=== PATIENT | female | born 1935 | race Caucasian/White ===

== ENCOUNTER → 2018-09-15 | Outpatient (CLI) | payer MEDICARE, BC ==
[~2018-09-15] MED LIST: REGADENOSON 0.4 MG/5 ML DISP.SYRIN. IV ONE
--- NOTE | 2018-09-16 13:34 | PCVCIMAG ---
APPROVED REPORT Imaging Protocol: Rest Tc-99m/Stress Tc-99m 1 day Study performed: 09/15/2018 08:46:59 Indication: CAD , Chest pain, Dyspnea Patient Location: Out-Patient Stress Nurse: Leigha Simeon RN, April Espinal RN [place] Tech:Aniya ANNE-MARIE UrbinaMT Ht: 5 ft 2 in Wt: 162 lbs BSA: 1.75 m2 HR: 65 bpm BP: 188/92 mmHg BMI: 29.6 Rhythm: Sinus Rhythm Medical History Medical History: HTN, Hyperlipidemia Medications: Albuterol, ASA, Lisinopril, Bystolic Allergies: Many, none relevant to this test Cardiac Risk Factors: Age CAD Previous Cardiac Procedures: PCI in 2013 - LAD, in 2017 - Circ Pretest Chest Pain Characteristics: No chest pain Exercise History: Physically active Meds Held (24 hrs): Pt chose to hold all am meds Resting Data Rest SPECT myocardial perfusion imaging was performed in supine position 45 minutes following the intravenous injection of 10.2 mCi of Tc-99m Sestamibi. Time of rest injection: 0800 Date: 09/15/2018 Administration Route: IV Administration Site: Right AC Pharmacologic Stress Pharmacologic stress test was performed by injecting Regadenoson 0.4 mg IV push over 10-15 seconds immediately followed by the intravenous injection of 34.8 mCi of Tc-99m Sestamibi. Time of stress injection: 0930 Date: 09/15/2018 Administration Route: IV Administration Site: Right AC Gated Stress SPECT was performed 45 minutes after stress injection. The images were gated to evaluate regional wall motion and calculate left ventricular ejection fraction. Stress Test Details Stress Test: Pharmacologic stress testing performed using 0.4 mg of regadenoson per 5 mL given IV over 10 seconds. Reason for pharmacologic stress test: back issues. HRMax Heart Rate (APMHR): 139 bpm Resting HR: 65 bpmTarget HR (85% APMHR): 118 bpm Max HR Achieved: 83 bpm % of APMHR: 59 Recovery HR: 80 bpm BP Resting BP: 188/92 mmHg Max BP: 182/76 mmHg Recovery BP: 194/88 mmHg ECG Resting ECG: Sinus Rhythm Stress ECG: Sinus Rhythm Recovery ECG: Sinus Rhythm Clinical Reason for Termination: Completed protocol Stress Symptoms: Abdominal discomfort, Dyspnea Exercise duration: 0 min 55 sec Symptoms resolved with caffeine. Stress ECG Conclusion ECG: Non-ischemic Study Quality Study: Good Study Data Post stress, the left ventricular ejection was 80%.. SSS: 6 SRS: 8 SDS: 1 TID = 1.06. Perfusion No evidence of stress induced ischemia or prior myocardial infarction. Wall Motion Normal left ventricular size and function with no regional wall motion abnormalities. Nuclear Conclusion No evidence of stress induced ischemia or prior myocardial infarction. Normal left ventricular size and function with no regional wall motion abnormalities. Post stress, the left ventricular ejection was 80%. No prior study available for comparison. Interpreted by: Christiano Beebe MD Electronically Approved: 09/15/2018 22:19:13 <Conclusion> ECG: Non-ischemic
== END | disposition home or self-care (01) ==
LOC: PCVCIMAG 07:33
PROVIDERS: ATTEND Internal Medicine Cardiovascular Disease
DX: R07.9 Chest pain, unspecified (principal); R06.00 Dyspnea, unspecified; I25.10 Atherosclerotic heart disease of native coronary artery without angina pectoris; E78.00 Pure hypercholesterolemia, unspecified; E03.9 Hypothyroidism, unspecified; I10 Essential (primary) hypertension; K21.9 Gastro-esophageal reflux disease without esophagitis; I73.9 Peripheral vascular disease, unspecified; I25.2 Old myocardial infarction; Z95.0 Presence of cardiac pacemaker
CPT/HCPCS: 78452; 93017; A9500; J2785

== ENCOUNTER → 2019-03-17 | Outpatient (CLI) | payer MEDICARE, BC | END | disposition home or self-care (01) | LOC: PCVCCLINIC 13:00 | PROVIDERS: ATTEND Nurse Practitioner Adult Health | DX: I25.10 Atherosclerotic heart disease of native coronary artery without angina pectoris (principal); I73.9 Peripheral vascular disease, unspecified; I49.5 Sick sinus syndrome; I10 Essential (primary) hypertension; E78.01 Familial hypercholesterolemia; K21.9 Gastro-esophageal reflux disease without esophagitis; E03.9 Hypothyroidism, unspecified; Z95.0 Presence of cardiac pacemaker; Z88.1 Allergy status to other antibiotic agents; Z79.82 Long term (current) use of aspirin | CPT/HCPCS: 36415; 80061; 93005; G0463 ==